=== PATIENT | female | born 1965 | race Caucasian/White ===

== ENCOUNTER 2020-03-06 16:34 | Emergency (ER) | payer SELFPAY ==
[~2020-03-06] VITALS: Ht 162.6 cm; Wt 113.4 kg
[2020-03-06 16:38] VITALS: BP 132/105
--- NOTE | 2020-03-06 16:44 | NUR ---
Pt biba from home c/o generalized weakness and dizziness that started 1 hr prior to arrival. Increase in HR upon ambulation, with decrease in BP. Skin warm, dry, and intact. Awake and alert. medhx: HIV
--- NOTE | 2020-03-06 16:45 | NUR ---
Giovanni wasserman in [facility] - 03/06/20 at 1645 by [facility] Patient being evaluated by DR COOMBS at bedside.
--- NOTE | 2020-03-06 16:45 | NUR ---
Dr Randolph at chairside examining patient
[2020-03-06] MEDS ORDERED: NACL 0.9% 500 ML IV SCH (16:50)
[2020-03-06 17:40] LABS: BASOPHILS % (AUTO) 0.9 % (0.0-2.0); EOSINOPHILS # (AUTO) 0.2 K/uL (0-0.4); EOSINOPHILS % (AUTO) 3.6 % (0.0-4.0); HEMATOCRIT 40.8 % (36-48); HEMOGLOBIN 13.5 g/dL (12.0-16.0); LYMPHOCYTES # (AUTO) 1.4 K/uL (2.5-16.5); LYMPHOCYTES % (AUTO) 26.2 % (20.5-51.1); MEAN CORPUSCULAR HEMOGLOBIN 33 pg (27-31); MEAN CORPUSCULAR HGB CONC 33 g/dL (33-37); MONOCYTES # (AUTO) 0.4 K/uL (0.8-1.0); MONOCYTES % (AUTO) 8.5 % (1.7-9.3); NEUTROPHILS # (AUTO) 3.2 K/uL (1.8-7.7); NEUTROPHILS % (AUTO) 60.8 % (42.2-75.2); PLATELET COUNT (AUTO) 176 K/uL (140-450); RED BLOOD CELL COUNT(AUTO) 4.08 MIL/uL (4.20-5.40); RED CELL DISTRIBUTION WIDTH 14.5 % (11.6-13.7); WHITE BLOOD COUNT (AUTO) 5.3 K/uL (4.8-10.8)
[2020-03-06 17:57] LABS: ALBUMIN 3.6 g/dL (3.4-5.0); ANION GAP 14.1 (8-16); CREATININE 2.8 mg/dL (0.6-1.3); POTASSIUM 5.1 mmol/L (3.5-5.1); TOTAL BILIRUBIN 0.4 mg/dL (0.0-1.0)
[2020-03-06 18:10] LABS: PROTHROMBIN TIME 10.1 secs (10.8-13.4)
[2020-03-06 18:24] LABS: SALICYLATE 4.8 mg/dL (2.8-20.0)
[2020-03-06 18:39] LABS: ACETAMINOPHEN < 0.5 ug/ml (10-30)
--- NOTE | 2020-03-06 19:20 | NUR ---
REPORT RECEIVED FROM CYNTHIA WOO. TRANSFER OF CARE AT THIS TIME.
--- NOTE | 2020-03-06 19:51 | NUR ---
CHELI SWAB COLLECTED AND GIVEN TO LAB.
[2020-03-06 20:22] VITALS: BP 168/98
--- NOTE | 2020-03-06 20:22 | NUR ---
Patient discharged with v/s stable. Written and verbal after care instructions given and explained. Patient verbalized understanding. Ambulatory with steady gait. All questions addressed prior to discharge. Advised to follow up with PMD.
== END 2020-03-06 20:22 | disposition home or self-care (01) ==
LOC: MED 16:34
DX: R56.9 Unspecified convulsions (principal); I12.9 Hypertensive chronic kidney disease with stage 1 through stage 4 chronic kidney disease, or unspecified chronic kidney disease; N18.4 Chronic kidney disease, stage 4 (severe); Z88.0 Allergy status to penicillin; Z20.828 Contact with and (suspected) exposure to other viral communicable diseases
CPT/HCPCS: 36415; 70450; 71045; 80053; 83605; 83880; 84484; 85025; 85379; 85610; 85730; 87040; 87426; 93005; 99285; G0480; G0482